=== PATIENT | male | born 1965 | race Caucasian/White ===

== ENCOUNTER 2022-12-23 11:29 | Emergency (ER) | payer BC ==
[2022-12-23] MEDS ORDERED: Sodium Chloride 0.9% 10 ML Syringe FLUSH PRN (12:09)
[2022-12-23] MEDS: Sodium Chloride 0.9% 1,000 ML IV ONE (12:30)
[2022-12-23] MEDS: Ondansetron 4 MG/2 ML SDV IVPUSH ONE (12:33)
[2022-12-23 12:51] LABS: EOSINOPHILS ABSOLUTE AUTO 0.1 x10-3/uL (0.0-0.6); LYMPHOCYTES ABSOLUTE AUTO 1.3 x10-3/uL (0.5-4.5); MEAN PLATELET VOLUME 8.8 fL (6.7-11.0)
[2022-12-23 12:53] LABS: BASOPHILS PERCENT AUTO 0.5 % (0.3-3.8); EOSINOPHILS PERCENT AUTO 1.7 % (0.1-6.8); HEMATOCRIT 47.9 % (38.3-50.1); HEMOGLOBIN 16.2 g/dL (12.9-17.7); LYMPHOCYTES PERCENT AUTO 15.8 % (15.8-45.3); MEAN CORPUSCULAR HEMOGLOBIN 28.3 pg (27.0-33.3); MEAN CORPUSCULAR HGB CONC 33.8 g/dL (28.7-35.3); MEAN CORPUSCULAR VOLUME 83.9 fL (80.8-98.7); MONOCYTES ABSOLUTE AUTO 0.7 x10-3/uL (0.0-1.2); NEUTROPHILS ABSOLUTE AUTO 6.1 x10-3/uL (1.7-6.9); PLATELET COUNT,PLT 335 x10(3)uL (117-477); RED BLOOD CELL COUNT 5.71 x10(6)uL (3.90-5.90); RED CELL DISTRIBUTION WIDTH 13.1 % (12.4-15.0); WHITE BLOOD CELL COUNT,WBC 8.3 x10-3/uL (3.2-10.1)
[2022-12-23 13:02] LABS: BLOOD UREA NITROGEN,BUN 15 mg/dL (7-18); CALCIUM 9.6 mg/dL (8.6-10.2); CARBON DIOXIDE,CO2 24 mmol/L (21-32); CHLORIDE,CL 104 mmol/L (100-110); EST CRCL DRUG DOSING (CG) 91.61 mL/min; ESTIMATED GFR 89 mL/min (>60); GLUCOSE RANDOM 117 mg/dL (80-116); POTASSIUM,K 3.7 mmol/L (3.5-5.3); SODIUM,NA 139 mmol/L (135-145)
[2022-12-23 13:09] LABS: A/G RATIO 1.3; ALANINE AMINOTRANSFERASE,ALT 20 U/L (12-36); ALBUMIN 4.2 g/dL (3.5-5.2); ALKALINE PHOSPHATASE 57 IU/L (56-112); ASPARTATE AMNIOTRANSFERASE,AST 17 IU/L (5-25); BILIRUBIN TOTAL 0.5 mg/dL (0.1-1.3); PROTEIN TOTAL,TP 7.4 g/dL (6.0-8.0)
[2022-12-23 13:10] LABS: TROPONIN I 4.3 pg/mL (4.0-60.3)
[2022-12-23 13:22] LABS: ETHANOL BLOOD MEDICAL < 0.03 % (<0.03)
[2022-12-23 13:28] LABS: BILIRUBIN,URINE NEGATIVE (NEGATIVE); GLUCOSE,URINE NORMAL (NORMAL); KETONES,URINE NEGATIVE (NEGATIVE); LEUKOCYTE ESTERASE,URINE NEGATIVE (NEGATIVE); NITRITE,URINE NEGATIVE (NEGATIVE); OCCULT BLOOD,URINE NEGATIVE (NEGATIVE); PROTEIN,URINE NEGATIVE (NEGATIVE); UROBILINOGEN,URINE NORMAL (NEGATIVE)
[2022-12-23 13:31] LABS: APPEARANCE,URINE CLEAR (CLEAR); COLOR,URINE YELLOW (YELLOW)
[2022-12-23 13:32] LABS: BACTERIA,URINE FEW (NS); SQUAMOUS EPITHELIAL CELLS,UR OCCASIONAL (NS,R,O); WBC,URINE 0-5 (0-5)
[2022-12-23 13:33] LABS: AMPHETAMINES SCREEN, URINE NEGATIVE (NEGATIVE); BARBITURATE SCREEN,URINE NEGATIVE (NEGATIVE); BENZODIAZEPINES SCREEN,URINE NEGATIVE (NEGATIVE); BUPRENORPHINE SCREEN,URINE NEGATIVE (NEGATIVE); METHADONE SCREEN, URINE NEGATIVE (NEGATIVE); METHAMPHETAMINE SCREEN, URINE NEGATIVE (NEGATIVE); OXYCODONE SCREEN,URINE NEGATIVE (NEGATIVE); PROPOXYPHENE SCREEN,URINE NEGATIVE (NEGATIVE); THC SCREEN,URINE NEGATIVE (NEGATIVE)
== END 2022-12-23 14:21 | disposition home or self-care (01) ==
LOC: FB.ED 11:29
DX: E86.0 Dehydration (principal); F41.9 Anxiety disorder, unspecified; F32.A Depression, unspecified; T43.225A Adverse effect of selective serotonin reuptake inhibitors, initial encounter; E78.00 Pure hypercholesterolemia, unspecified; K21.9 Gastro-esophageal reflux disease without esophagitis; F17.210 Nicotine dependence, cigarettes, uncomplicated; Z79.899 Other long term (current) drug therapy
CPT/HCPCS: 36415; 80053; 80307; 81001; 83735; 84484; 85025; 85379; 93005; 96361; 96374; 99285; J2405; J7030